=== PATIENT | female | born 1970 | race Hispanic/Latino ===

== ENCOUNTER 2018-08-13 19:20 | Emergency (ER) | payer MEDICAID ==
[~2018-08-13 19:20] MED LIST: AEC81 PO; ALBU8.5H8 IH; ESOM20CA31 PO; FERR159T2 PO; GLYB-228 PO; PARO-37 PO; SIMV20TA6 PO
== END 2018-08-13 19:44 | disposition home or self-care (01) ==
LOC: EDH 19:20
DX: Z02.83 Encounter for blood-alcohol and blood-drug test (principal)

== ENCOUNTER → 2019-12-25 | Outpatient (CLI) | payer MEDICAID ==
[~2019-12-25] MED LIST changes: -GLYB-228 PO; +GLYB1TAB32 PO; +SIMV-43 PO; -SIMV20TA6 PO
== END | disposition home or self-care (01) ==
LOC: SHCH 14:27
PROVIDERS: ATTEND Internal Medicine Cardiovascular Disease
DX: R00.2 Palpitations (principal); R94.31 Abnormal electrocardiogram [ECG] [EKG]; I10 Essential (primary) hypertension
CPT/HCPCS: 93306; 93356

== ENCOUNTER → 2023-07-23 | Outpatient (CLI) | payer MEDICAID ==
[~2023-07-23] MED LIST changes: +GLYB-173 PO; -GLYB1TAB32 PO
== END | disposition home or self-care (01) ==
LOC: RAH 13:11
PROVIDERS: ATTEND Internal Medicine
DX: M54.16 Radiculopathy, lumbar region (principal); M25.851 Other specified joint disorders, right hip; M25.551 Pain in right hip
CPT/HCPCS: 72100; 73502